=== PATIENT | female | born 1960 | race Two or more races ===

== ENCOUNTER → 2024-01-11 | Outpatient (BNVA) | payer MEDICAID, SELFPAY | END | disposition home or self-care (01) | PROVIDERS: PCP Nurse Practitioner Family; Referring Provider Nurse Practitioner Family; Visit Provider Nurse Practitioner Family | DX: Z71.2 Person consulting for explanation of examination or test findings (principal); N95.0 Postmenopausal bleeding; N63.20 Unspecified lump in the left breast, unspecified quadrant | CPT/HCPCS: 99214 ==

== ENCOUNTER → 2024-02-08 | Outpatient (BNVA) | payer MEDICAID, SELFPAY | END | disposition home or self-care (01) | PROVIDERS: PCP Nurse Practitioner Family; Referring Provider Nurse Practitioner Family; Visit Provider Nurse Practitioner Family | DX: N39.0 Urinary tract infection, site not specified (principal) | CPT/HCPCS: 99215 ==

== ENCOUNTER → 2024-02-15 | Outpatient (CLI) | payer MEDICAID, SELFPAY ==
--- NOTE | 2024-02-15 15:30 | XR_ITS ---
Examination: MRI pelvis with intravenous contrast. MRI pelvis without intravenous contrast. Date and time of exam: February 15, 2024 1647 hrs. Indications: Generalized pelvic pain and vaginal bleeding beginning 6 months ago, endometrial stripe 6 mm on transvaginal pelvic sonogram December 31, 2023 Technique: Multiple axial, sagittal and coronal sections of the pelvis obtained. Transverse images, TR 6020, TE 107. T1 weighted transverse images, TR 582, TE 9.5. T2-weighted sagittal images, TR 4000, TE 105. T2-weighted sagittal images, TR 4000, TE 5. Coronal images, TR 4210, TE 107. Axial and coronal images are obtained post 15 cc intravenous injection, gadolinium. Findings: Anteverted uterus, 8 by 4 x 4 cm Endometrial stripe in the fundus 4 mm in the lower uterine segment 6 mm Postcontrast images do not demonstrate abnormal enhancement of the endometrium, no enhancing uterine mass No adnexal mass No common iliac and external iliac internal iliac or common femoral lymphadenopathy No free fluid in the pelvis Impression: No abnormal enhancing uterine mass or abnormal enhancement of the endometrium Recommend 6 month transvaginal pelvic sonography follow-up
== END | disposition home or self-care (01) ==
LOC: SMRI 02-18 07:00
PROVIDERS: PCP Nurse Practitioner Family; Referring Provider Nurse Practitioner Family; Visit Provider Nurse Practitioner Family
DX: N85.00 Endometrial hyperplasia, unspecified (principal)
CPT/HCPCS: 72197; A9579

== ENCOUNTER → 2024-02-16 | Outpatient (BNVA) | payer MEDICAID, SELFPAY | END | disposition home or self-care (01) | PROVIDERS: PCP Nurse Practitioner Family; Referring Provider Nurse Practitioner Family; Visit Provider Nurse Practitioner Family | DX: B37.31 Acute candidiasis of vulva and vagina (principal); Z71.2 Person consulting for explanation of examination or test findings | CPT/HCPCS: 99215 ==

== ENCOUNTER → 2024-02-19 | Outpatient (BNVA) | payer MEDICAID, SELFPAY | END | disposition home or self-care (01) | PROVIDERS: PCP Nurse Practitioner Family; Referring Provider Nurse Practitioner Family; Visit Provider Nurse Practitioner Family | DX: N39.0 Urinary tract infection, site not specified (principal); N95.0 Postmenopausal bleeding; Z71.2 Person consulting for explanation of examination or test findings | CPT/HCPCS: 96372; 99213; A4216; J0696 ==

== ENCOUNTER → 2024-02-26 | Outpatient (BNVA) | payer MEDICAID, SELFPAY | END | disposition home or self-care (01) | PROVIDERS: PCP Nurse Practitioner Family; Referring Provider Nurse Practitioner Family; Visit Provider Nurse Practitioner Family | DX: N39.0 Urinary tract infection, site not specified (principal); Z51.89 Encounter for other specified aftercare | CPT/HCPCS: 81001; 99215 ==

== ENCOUNTER → 2024-03-04 | Outpatient (BNVA) | payer MEDICAID, SELFPAY | END | disposition home or self-care (01) | PROVIDERS: PCP Nurse Practitioner Family; Referring Provider Nurse Practitioner Family; Visit Provider Nurse Practitioner Family | DX: E78.5 Hyperlipidemia, unspecified (principal); E03.9 Hypothyroidism, unspecified; K21.9 Gastro-esophageal reflux disease without esophagitis; Z76.89 Persons encountering health services in other specified circumstances; Z71.2 Person consulting for explanation of examination or test findings; Z11.3 Encounter for screening for infections with a predominantly sexual mode of transmission; R73.03 Prediabetes | CPT/HCPCS: 81001; 99214 ==

== ENCOUNTER → 2024-04-06 | Outpatient (CLI) | payer MEDICAID, SELFPAY ==
--- NOTE | 2024-04-06 13:14 | XR_ITS ---
Examination: PA lateral chest 2 views TECHNIQUE: Upright PA lateral chest 2 views Exam date and time: April 06, 2024 1321 hours INDICATIONS: Shortness of breath beginning 5 days ago. FINDINGS: Normal heart size Lungs are clear. The osseous structures are intact IMPRESSION: No active disease
== END | disposition home or self-care (01) ==
PROVIDERS: PCP Nurse Practitioner Family; Referring Provider Nurse Practitioner Family; Visit Provider Nurse Practitioner Family
DX: R06.02 Shortness of breath (principal)
CPT/HCPCS: 71046

== ENCOUNTER → 2024-04-06 | Outpatient (BNVA) | payer MEDICAID, SELFPAY | END | disposition home or self-care (01) | PROVIDERS: PCP Nurse Practitioner Family; Referring Provider Nurse Practitioner Family; Visit Provider Nurse Practitioner Family | DX: J20.9 Acute bronchitis, unspecified (principal) | CPT/HCPCS: 87804; 87811; 94640; 99214; A9270 ==

== ENCOUNTER → 2024-04-11 | Outpatient (BNVA) | payer MEDICAID, SELFPAY | END | disposition home or self-care (01) | PROVIDERS: PCP Nurse Practitioner Family; Referring Provider Nurse Practitioner Family; Visit Provider Nurse Practitioner Family | DX: J20.9 Acute bronchitis, unspecified (principal) ==

== ENCOUNTER → 2024-04-13 | Outpatient (BNVA) | payer MEDICAID, SELFPAY | END | disposition home or self-care (01) | PROVIDERS: PCP Nurse Practitioner Family; Referring Provider Nurse Practitioner Family; Visit Provider Nurse Practitioner Family | DX: J20.9 Acute bronchitis, unspecified (principal) | CPT/HCPCS: 94640; 99213; A9270 ==

== ENCOUNTER → 2024-04-20 | Outpatient (BNVA) | payer MEDICAID, SELFPAY | END | disposition home or self-care (01) | PROVIDERS: PCP Nurse Practitioner Family; Referring Provider Nurse Practitioner Family; Visit Provider Nurse Practitioner Family | DX: J20.9 Acute bronchitis, unspecified (principal); J45.909 Unspecified asthma, uncomplicated | CPT/HCPCS: 99214; A9270 ==

== ENCOUNTER → 2024-04-21 | Outpatient (CLI) | payer MEDICAID, SELFPAY ==
--- NOTE | 2024-04-21 | XR_ITS ---
Examination: PA lateral chest 2 views TECHNIQUE: Upright PA lateral chest 2 views Exam date and time: April 21, 2024 1133 hours INDICATIONS: Coughing beginning one month ago. FINDINGS: Normal heart size The lungs are clear. Moderate thoracic spondylosis IMPRESSION: No active disease
== END | disposition home or self-care (01) ==
LOC: CDIM 11:19
PROVIDERS: Referring Provider Nurse Practitioner Family; Visit Provider Nurse Practitioner Family
DX: R05.9 Cough, unspecified (principal)
CPT/HCPCS: 71046

== ENCOUNTER → 2024-04-25 | Outpatient (BNVA) | payer MEDICAID, SELFPAY | END | disposition home or self-care (01) | PROVIDERS: PCP Nurse Practitioner Family; Referring Provider Nurse Practitioner Family; Visit Provider Nurse Practitioner Family | DX: Z71.2 Person consulting for explanation of examination or test findings (principal); J20.9 Acute bronchitis, unspecified | CPT/HCPCS: 99214 ==

== ENCOUNTER → 2024-05-04 | Outpatient (BNVA) | payer MEDICAID, SELFPAY | END | disposition home or self-care (01) | PROVIDERS: PCP Nurse Practitioner Family; Referring Provider Nurse Practitioner Family; Visit Provider Nurse Practitioner Family | DX: Z71.2 Person consulting for explanation of examination or test findings (principal); R73.03 Prediabetes; E78.5 Hyperlipidemia, unspecified; E03.9 Hypothyroidism, unspecified | CPT/HCPCS: 99214 ==

== ENCOUNTER → 2024-05-17 | Outpatient (BNVA) | payer MEDICAID, SELFPAY | END | disposition home or self-care (01) | PROVIDERS: PCP Nurse Practitioner Family; Referring Provider Nurse Practitioner Family; Visit Provider Nurse Practitioner Family | DX: N76.0 Acute vaginitis (principal) | CPT/HCPCS: 99212; G0463 ==

== ENCOUNTER → 2024-05-18 | Outpatient (BNVA) | payer MEDICAID, SELFPAY | END | disposition home or self-care (01) | PROVIDERS: PCP Nurse Practitioner Family; Referring Provider Nurse Practitioner Family; Visit Provider Nurse Practitioner Family | DX: G43.919 Migraine, unspecified, intractable, without status migrainosus (principal) | CPT/HCPCS: 99213 ==

== ENCOUNTER → 2024-05-25 | Outpatient (BNVA) | payer MEDICAID, SELFPAY | END | disposition home or self-care (01) | PROVIDERS: PCP Nurse Practitioner Family; Referring Provider Nurse Practitioner Family; Visit Provider Nurse Practitioner Family | DX: Z71.2 Person consulting for explanation of examination or test findings (principal); K21.9 Gastro-esophageal reflux disease without esophagitis; Z12.11 Encounter for screening for malignant neoplasm of colon; N76.0 Acute vaginitis | CPT/HCPCS: 99214 ==

== ENCOUNTER → 2024-06-23 | Outpatient (BNVA) | payer MEDICAID, SELFPAY | END | disposition home or self-care (01) | PROVIDERS: PCP Nurse Practitioner Family; Referring Provider Nurse Practitioner Family; Visit Provider Nurse Practitioner Family | DX: Z71.2 Person consulting for explanation of examination or test findings (principal); E03.9 Hypothyroidism, unspecified | CPT/HCPCS: 99212; G0463 ==

== ENCOUNTER → 2024-07-29 | Outpatient (BNVA) | payer MEDICAID, SELFPAY | END | disposition home or self-care (01) | PROVIDERS: PCP Nurse Practitioner Family; Referring Provider Nurse Practitioner Family; Visit Provider Nurse Practitioner Family | DX: M25.542 Pain in joints of left hand (principal); M25.541 Pain in joints of right hand; I10 Essential (primary) hypertension; N95.9 Unspecified menopausal and perimenopausal disorder | CPT/HCPCS: 99214 ==

== ENCOUNTER → 2024-08-04 | Outpatient (CLI) | payer MEDICAID, SELFPAY ==
--- NOTE | 2024-08-04 11:19 | XR_ITS ---
Examination: Bilateral hands, 4 views. Technique: AP, lateral each hand total 4 views Date and time of exam: 04/06/2024 1129 hours INDICATIONS: Bilateral hand pain several years Findings: Moderate osteopenia Advanced right hand first carpometacarpal joint as well as interphalangeal joint first digit No fracture Moderate osteoarthritis left first carpometacarpal joint and interphalangeal joint left first digit No fracture No erosive arthritis IMPRESSION: Osteoarthritis as above
== END | disposition home or self-care (01) ==
LOC: CDIM 11:15
PROVIDERS: Referring Provider Nurse Practitioner Family; Visit Provider Nurse Practitioner Family
DX: M19.042 Primary osteoarthritis, left hand (principal); M19.041 Primary osteoarthritis, right hand
CPT/HCPCS: 73120

== ENCOUNTER → 2024-08-10 | Outpatient (BNVA) | payer MEDICAID, SELFPAY | END | disposition home or self-care (01) | PROVIDERS: PCP Nurse Practitioner Family; Referring Provider Nurse Practitioner Family; Visit Provider Nurse Practitioner Family | DX: Z71.2 Person consulting for explanation of examination or test findings (principal); M19.042 Primary osteoarthritis, left hand; M19.041 Primary osteoarthritis, right hand | CPT/HCPCS: 99212; G0463 ==

== ENCOUNTER → 2024-09-02 | Outpatient (BNVA) | payer MEDICAID, SELFPAY | END | disposition home or self-care (01) | PROVIDERS: PCP Nurse Practitioner Family; Referring Provider Nurse Practitioner Family; Visit Provider Nurse Practitioner Family | DX: K21.9 Gastro-esophageal reflux disease without esophagitis (principal); E78.5 Hyperlipidemia, unspecified | CPT/HCPCS: 99212; G0463 ==

== ENCOUNTER → 2024-09-05 | Outpatient (BNVA) | payer MEDICAID, SELFPAY | END | disposition home or self-care (01) | PROVIDERS: PCP Nurse Practitioner Family; Referring Provider Nurse Practitioner Family; Visit Provider Nurse Practitioner Family | DX: M54.41 Lumbago with sciatica, right side (principal) | CPT/HCPCS: 96372; 99213; J1885 ==

== ENCOUNTER → 2024-10-05 | Outpatient (BNVA) | payer MEDICAID, SELFPAY | END | disposition home or self-care (01) | PROVIDERS: PCP Nurse Practitioner Family; Referring Provider Nurse Practitioner Family; Visit Provider Nurse Practitioner Family | DX: Z00.01 Encounter for general adult medical examination with abnormal findings (principal); M25.541 Pain in joints of right hand; E03.9 Hypothyroidism, unspecified; G43.919 Migraine, unspecified, intractable, without status migrainosus; E78.5 Hyperlipidemia, unspecified; I10 Essential (primary) hypertension; K21.9 Gastro-esophageal reflux disease without esophagitis; Z78.0 Asymptomatic menopausal state; M54.41 Lumbago with sciatica, right side; M19.041 Primary osteoarthritis, right hand; M19.042 Primary osteoarthritis, left hand | CPT/HCPCS: 93005; 99173; 99213; 99214 ==

== ENCOUNTER → 2024-11-04 | Outpatient (BNVA) | payer MEDICAID, SELFPAY | END | disposition home or self-care (01) | PROVIDERS: PCP Nurse Practitioner Family; Referring Provider Nurse Practitioner Family; Visit Provider Nurse Practitioner Family | DX: G43.919 Migraine, unspecified, intractable, without status migrainosus (principal); M79.642 Pain in left hand; M79.641 Pain in right hand | CPT/HCPCS: 99214 ==

== ENCOUNTER → 2024-11-22 | Outpatient (BNVA) | payer MEDICAID, SELFPAY | END | disposition home or self-care (01) | PROVIDERS: PCP Nurse Practitioner Family; Referring Provider Nurse Practitioner Family; Visit Provider Nurse Practitioner Family | DX: Z71.2 Person consulting for explanation of examination or test findings (principal); E03.9 Hypothyroidism, unspecified; R73.03 Prediabetes; Z23 Encounter for immunization; E78.5 Hyperlipidemia, unspecified; Z12.39 Encounter for other screening for malignant neoplasm of breast | CPT/HCPCS: 90471; 90686; 99215 ==

== ENCOUNTER → 2024-12-01 | Outpatient (BNVA) | payer MEDICAID, SELFPAY | END | disposition home or self-care (01) | PROVIDERS: PCP Nurse Practitioner Family; Referring Provider Nurse Practitioner Family; Visit Provider Nurse Practitioner Family | DX: Z71.2 Person consulting for explanation of examination or test findings (principal); E03.9 Hypothyroidism, unspecified; Z11.3 Encounter for screening for infections with a predominantly sexual mode of transmission; I10 Essential (primary) hypertension; R73.03 Prediabetes; E78.5 Hyperlipidemia, unspecified | CPT/HCPCS: 99214 ==

== ENCOUNTER → 2025-01-02 | Outpatient (CLI) | payer MEDICAID, SELFPAY ==
--- NOTE | 2024-12-31 10:31 | ESHP_ITS ---
RE: KAREEM MARIN : 1960 DATE OF ADMISSION: 01/03/2025 This is a 64-year-old 2 para 2 with endometrial polyps who is undergoing polyp removal. ALLERGIES: MORPHINE. MEDICATIONS: 1. Lovastatin 20 mg 1 p.o. daily. 2. Losartan 25 mg 1 p.o. daily. 3. Levothyroxine 100 mcg 1 p.o. daily. 4. Omeprazole 40 mg 1 p.o. daily. 5. Hydroxyzine 10 mg 1 p.o. daily. 6. Emgality pen 120 mg sub-Q weekly. 7. Fluticasone 100 mcg per inhalation b.i.d. 8. Premarin 0.625 mg/g vaginal cream 2 mg per vagina twice weekly. PAST MEDICAL HISTORY: Hyperlipidemia, hypertension, diabetes, seasonal allergies, hypothyroidism, gastroesophageal reflux disease, insomnia, stress urinary incontinence, asthma, arthritis. SOCIAL HISTORY: She denies any alcohol, drug use, or smoking. PAST SURGICAL HISTORY: Denies. REVIEW OF SYSTEMS: She denies any chest pain, palpitations, cough, fever, flank pain, shortness of breath, or lower extremity pain. PHYSICAL EXAMINATION: VITAL SIGNS: Blood pressure is 138/74, heart rate 88, respiration 18, temperature is 98.6. Weight 169 pounds. HEENT: Oropharynx and sclerae are clear. LUNGS: Clear to auscultation bilaterally. HEART: Regular rate and rhythm. ABDOMEN: Nontender. EXTREMITIES: Nontender. SKIN: No gross rashes or lesions. NEUROLOGIC: No focal deficit. ASSESSMENT AND PLAN: Endometrial polyps. PLAN: Hysteroscopy, fractional dilatation and curettage, and MyoSure removal of endometrial polyps. She is aware of the risks of injury to bowel, bladder, adjacent organs, pulmonary embolism, deep vein thrombosis, pelvic infection, reoperation to repair injury to internal organs, and anesthesia complications, the possibility that a laparotomy needs to be performed to repair organs or control bleeding, and the possibility the procedure is not able to be completed due to severe cervical stenosis or technical difficulties. She verbalized understanding and agrees to proceed with the procedure with the understanding of the risks and complications. DT: 10:21:47 TT: 10:31:00 Ref: [id number] - TID: [id number] [facility]
[2025-01-02 10:12] VITALS: BMI 34.0
[2025-01-02 10:55] LABS: Basophils # (Auto) 0.0 Thou/mm3 (0.0-0.2); Basophils % (Auto) 0 % (0-2.5); Eosinophils # (Auto) 0.1 Thou/mm3 (0.0-0.5); Eosinophils % (Auto) 2 % (0-10); Hematocrit 39.9 % (36.0-46.0); Hemoglobin 13.1 g/dL (12.0-16.0); Immature Granulocytes Auto 0.01 Thou/mm3 (0.00-0.00); Lymphocytes # (Auto) 2.1 Thou/mm3 (1.0-4.8); Lymphocytes % (Auto) 30 % (10-50); Mean Corpuscular HGB Conc 32.8 g/dl (31.0-37.0); Mean Corpuscular Hemoglobin 31.8 pg (25.0-35.0); Mean Corpuscular Volume 97 fL (80-100); Monocytes # (Auto) 0.5 Thou/mm3 (0.0-0.8); Monocytes % (Auto) 6 % (0-12); Neutrophils # (Auto) 4.4 Thou/mm3 (1.8-7.7); Neutrophils % (Auto) 62 % (37-80); Nucleated Red Blood Cell # 0.00 Thou/mm3 (0.00-0.00); Nucleated Red Blood Cell % 0 /100 WBC (0); Platelet Count 267 Thou/mm3 (140-440); RDW Standard Deviation 48.4 fL (36.4-46.3); Red Blood Count 4.12 Miln/mm3 (4.00-5.20); White Blood Count 7.1 Thou/mm3 (3.6-11.0)
[2025-01-02 11:12] LABS: Alanine Aminotransferase 47 U/L (10-49); Albumin, Serum 4.5 gm/dL (3.4-4.8); Albumin/Globulin Ratio 2.0 (1.2-2.2); Alkaline Phosphatase 165 U/L (46-116); Anion Gap 7 (7-16); Aspartate Amino Transferase 33 U/L (0-34); BUN/Creatinine Ratio 17 Ratio (12-20); Bilirubin,Total 0.5 mg/dL (0.3-1.2); Blood Urea Nitrogen 12 mg/dL (9-23); Calcium 10.1 mg/dL (8.3-10.6); Calcium (Corrected) 10.1 mg/dL (8.5-10.1); Carbon Dioxide 29.9 mMol/L (20.0-31.0); Chloride 105 mMol/L (98-107); Creatinine (Component) 0.7 mg/dL (0.6-1.3); Estimated Creatinine Clearance 74.2 mL/min (>60); Globulin 2.3 gm/dL (2.3-3.5); Glucose 88 mg/dL (74-106); INR 1.0 (0.9-1.3); Osmolality,Calculated 281 (275-295); Partial Thromboplastin Time 27.4 Seconds (22.0-36.0); Potassium 4.0 mMol/L (3.4-5.1); Prothrombin Time 10.7 Seconds (9.0-12.2); Sodium 142 mMol/L (136-145); Total Protein 6.8 gm/dL (5.7-8.2); eGFR > 60 See Note
== END | disposition home or self-care (01) ==
LOC: SLAB 01-05 08:05
PROVIDERS: PCP Nurse Practitioner Family; Referring Provider Specialist; Visit Provider Specialist
DX: N84.0 Polyp of corpus uteri (principal)
CPT/HCPCS: 36415; 80053; 85025; 85610; 85730; 86850; 86900; 86901

== ENCOUNTER → 2025-02-01 | Outpatient (BNVA) | payer MEDICAID, SELFPAY | END | disposition home or self-care (01) | PROVIDERS: PCP Nurse Practitioner Family; Referring Provider Nurse Practitioner Family; Visit Provider Nurse Practitioner Family | DX: Z76.0 Encounter for issue of repeat prescription (principal); E78.5 Hyperlipidemia, unspecified; E03.9 Hypothyroidism, unspecified; I10 Essential (primary) hypertension; J45.909 Unspecified asthma, uncomplicated; R73.03 Prediabetes; Z78.0 Asymptomatic menopausal state | CPT/HCPCS: 99213 ==

== ENCOUNTER 2025-02-14 05:45 | Day surgery (SDC) | payer MEDICAID, SELFPAY ==
--- NOTE | 2025-02-07 11:56 | ESHP_ITS ---
RE: KAREEM DESIR : 1960 DATE OF ADMISSION: 02/14/2025 HISTORY OF PRESENT ILLNESS: This is a 64-year-old 2, para 2 postmenopausal with endometrial polyps, who is undergoing hysteroscopic removal of the endometrial polyps. ALLERGIES: PATIENT IS ALLERGIC TO MORPHINE. MEDICATIONS: 1. Lovastatin 20 mg one p.o. daily. 2. Losartan 25 mg one p.o. daily. 3. Levothyroxine 100 mcg one p.o. daily. 4. Omeprazole 40 mg one p.o. daily. 5. Hydroxyzine 10 mg one p.o. daily. 6. Emgality pen 120 mg sub-Q weekly. 7. Fluticasone 100 mcg per inhalation b.i.d. 8. Premarin 0.625 mg per gram vaginal cream 2 g per vagina twice weekly. PAST MEDICAL HISTORY: Hyperlipidemia, hypertension, diabetes, seasonal allergies, hypothyroidism, gastroesophageal reflux disease, insomnia, stress urinary incontinence, asthma, arthritis. SOCIAL HISTORY: She denies any alcohol, drug use, or smoking. PAST SURGICAL HISTORY: Denies. REVIEW OF SYSTEMS: She denies any chest pain, palpitations, cough, fever, flank pain, shortness of breath, or lower extremity pain or swelling. PHYSICAL EXAMINATION: VITAL SIGNS: Blood pressure 138/74, heart rate 88, respirations 18, temperature is 98.6. Weight 169 pounds. HEENT: Oropharynx and sclerae are clear. LUNGS: Clear to auscultation bilaterally. HEART: Regular rate and rhythm. ABDOMEN: Nontender. EXTREMITIES: Nontender. SKIN: No gross rashes or lesions. NEUROLOGIC: No focal deficits. ASSESSMENT AND PLAN: Endometrial polyps. PLAN: Hysteroscopy, fractional dilatation and curettage, and MyoSure removal of endometrial polyps. Informed consent was obtained. She was made aware of the risk of injury to bowel, bladder, adjacent organs, pulmonary embolism, deep vein thrombosis, pelvic infection, reoperation to repair injury to internal organs, anesthesia complications, the possibility that a laparotomy needs to be performed to repair organs to control bleeding, and the possibility of the procedure is not able to be completed due to severe cervical stenosis or technical difficulties. She verbalized understanding and agreed to proceed with the procedure with an understanding of the risks and complications. DT: 11:45:44 TT: 11:55:00 Ref: [id number] - TID: [id number] [facility]
[2025-02-13 10:37] VITALS: BMI 33.1
[2025-02-13 11:11] LABS: Basophils # (Auto) 0.0 Thou/mm3 (0.0-0.2); Basophils % (Auto) 1 % (0-2.5); Eosinophils # (Auto) 0.1 Thou/mm3 (0.0-0.5); Eosinophils % (Auto) 1 % (0-10); Hematocrit 38.8 % (36.0-46.0); Hemoglobin 12.9 g/dL (12.0-16.0); Immature Granulocytes Auto 0.01 Thou/mm3 (0.00-0.00); Lymphocytes # (Auto) 2.6 Thou/mm3 (1.0-4.8); Lymphocytes % (Auto) 45 % (10-50); Mean Corpuscular HGB Conc 33.2 g/dl (31.0-37.0); Mean Corpuscular Hemoglobin 31.8 pg (25.0-35.0); Mean Corpuscular Volume 96 fL (80-100); Monocytes # (Auto) 0.5 Thou/mm3 (0.0-0.8); Monocytes % (Auto) 9 % (0-12); Neutrophils # (Auto) 2.7 Thou/mm3 (1.8-7.7); Neutrophils % (Auto) 45 % (37-80); Nucleated Red Blood Cell # 0.00 Thou/mm3 (0.00-0.00); Nucleated Red Blood Cell % 0 /100 WBC (0); Platelet Count 209 Thou/mm3 (140-440); RDW Standard Deviation 48.2 fL (36.4-46.3); Red Blood Count 4.06 Miln/mm3 (4.00-5.20); White Blood Count 5.9 Thou/mm3 (3.6-11.0)
[2025-02-13 11:30] LABS: INR 1.0 (0.9-1.3); Partial Thromboplastin Time 24.0 Seconds (22.0-36.0); Prothrombin Time 10.2 Seconds (9.0-12.2)
[2025-02-13 11:36] LABS: Alanine Aminotransferase 27 U/L (10-49); Albumin, Serum 4.2 gm/dL (3.4-4.8); Albumin/Globulin Ratio 1.5 (1.2-2.2); Alkaline Phosphatase 138 U/L (46-116); Anion Gap 9 (7-16); Aspartate Amino Transferase 24 U/L (0-34); BUN/Creatinine Ratio 16 Ratio (12-20); Bilirubin,Total 0.4 mg/dL (0.3-1.2); Blood Urea Nitrogen 13 mg/dL (9-23); Calcium 10.2 mg/dL (8.3-10.6); Calcium (Corrected) 10.2 mg/dL (8.5-10.1); Carbon Dioxide 29.8 mMol/L (20.0-31.0); Chloride 105 mMol/L (98-107); Creatinine (Component) 0.8 mg/dL (0.6-1.3); Estimated Creatinine Clearance 66.9 mL/min (>60); Globulin 2.8 gm/dL (2.3-3.5); Glucose 88 mg/dL (74-106); Osmolality,Calculated 285 (275-295); Potassium 3.8 mMol/L (3.4-5.1); Sodium 144 mMol/L (136-145); Total Protein 7.0 gm/dL (5.7-8.2); eGFR > 60 See Note
[2025-02-14] VITALS (7 sets, daily range): BP systolic 94–165; BP diastolic 53–83; PULSE 58–80; RESP 12–20; TEMP 36.3–36.6; O2SAT 95–100; BMI 33.2
--- NOTE | 2025-02-14 08:13 | SUR.PHASEI ---
0813: Pt. wakes to name then drifts back to sleep, vitals stable, breathing unlabored, no signs of distress, peripad in place CDI, no active bleed noted, report received from Randee MCDOWELL and MD Acuña.
--- NOTE | 2025-02-14 08:48 | ESOP_ITS ---
RE: KAREEM DESIR : 1960 DATE OF OPERATION: 02/14/2025 PREOPERATIVE DIAGNOSIS: Endometrial polyps. POSTOPERATIVE DIAGNOSIS: Endometrial polyps. PROCEDURE: Hysteroscopy, MyoSure removal of endometrial polyps, and fractional dilatation and curettage. SURGEON: Dr. Steve Santos DO. RECRUIT INSTRUCTOR: None. ANESTHESIA: General. ANESTHESIOLOGIST: Dr. Acuña. ESTIMATED BLOOD LOSS: 2 mL. COMPLICATIONS: None. COUNTS: Correct. PATHOLOGY: Endometrial polyps, endocervical curettings, and endometrial curettings. COMPLICATIONS: None. FINDINGS: Two endometrial polyps in the uterine cavity. The first measuring 1 x 1 cm, the second measuring 5 x 5 mm, both on the posterior mid and upper uterine segments. No endocervical lesions noted. No abnormal uterine cavity shape was noted. PROCEDURE: After proper informed consent was obtained and the patient made aware of the risk, complication, alternative, benefits of the proposed procedure, she was taken to the operating room where she underwent induction of general anesthesia. She was placed in the dorsal lithotomy position. She was prepped and draped in the usual sterile fashion. A time out was performed. A speculum was placed in the vagina. A tenaculum was used on the anterior lip of the cervix. The uterus was sounded to 7.5 cm. The cervix was dilated to accommodate the 5.5 mm Omni hysteroscope. The hysteroscope with normal saline as the distending media was then utilized to visualize the endocervix and uterine cavity and the above findings noted. Using the MyoSure Reach, the polypectomies were performed and specimens sent to pathology. The uterine cavity was smooth at the end of the MyoSure procedure. At this point, the endocervix was curetted with a Kevorkian curette and specimen sent to pathology. Then, the uterine cavity was curetted with a 5 mm curette and the specimen sent to pathology. There was no bleeding at the anterior lip of the cervix or from the endocervix at the end of the procedure. There was 125 mL of saline that was absorbed hysteroscopically. She was reversed from general anesthesia in supine position and transferred to the recovery room in stable condition. She tolerated procedure well. Counts were correct. I discussed with the patient's daughter the nature of her condition, intraoperative findings, expectation for recovery, all questions answered. DT: 08:22:51 TT: 08:47:00 Ref: [id number] - TID: [id number]
--- NOTE | 2025-02-14 09:08 | SUR.PHASEII ---
0908: Pt. AAOx4, vitals stable, breathing unlabored, no complaint of pain or nausea, peripad in place CDI, no active bleed noted, pt. tolerated sips of water well, pt. ambulated to wheelchair with steady gait and no assist, no complications. Gave discharge instructions to the pt. and her ride using a collet gluer, both verbalized understanding and had no further questions. Pt. left with all personal belongings.
== END 2025-02-14 09:08 | disposition home or self-care (01) ==
PROVIDERS: PCP Nurse Practitioner Family; Referring Provider Specialist; Visit Provider Specialist
PROC: 0U5B8ZZ Destruction of Endometrium, Via Natural or Artificial Opening Endoscopic (ICD-10-PCS; CPT 58563; principal; 2025-02-14 07:30)
DX: N84.0 Polyp of corpus uteri (principal)
CPT/HCPCS: 58558; 36415; 80053; 85025; 85610; 85730; 86850; 86900; 86901; A4217; A4649; J0690; J1100; J2250; J2371; J2704; J2765; J3010